=== PATIENT | female | born 1930 | race Caucasian/White ===

== ENCOUNTER 2016-05-12 12:22 | Emergency (ER) | payer OTHER ==
--- NOTE | 2016-05-12 12:32 | CPEKG ---
Heart Rate: 73 RR Interval: 822 P-R Interval: 184 QRSD Interval: 90 QT Interval: 404 QTC Interval: 446 P [place]: 38 QRS [place]: -56 T Wave [place]: 17 EKG Severity - ABNORMAL ECG - EKG Impression: SINUS RHYTHM EKG Impression: LAD, CONSIDER LEFT ANTERIOR FASCICULAR BLOCK EKG Impression: CONSIDER ANTERIOR INFARCT Electronically Signed By: Jong Martinez 12-May-2016 13:55:48
--- NOTE | 2016-05-12 12:34 | EDPHY ---
H & P HPI/ROS: Chief complaint. Dizziness HPI. 86-year-old female presents emergency department with dizziness. It actually has now resolved. She has a history of vertigo and this is similar though may be a little bit more intense. This morning she was feeling well but she bent over to pick remover a walking stick that she had dropped. When she stood up she got dizzy and somewhat off balance. Did not feel like she was going to pass out. She had no chest discomfort, shortness of breath, abdominal pain. Her symptoms have resolved at this point. Again she has had similar symptoms previously and has diagnosis of vertigo. ROS Constitutional. no fever/chills, no weakness Eyes. no problems with vision ENT. no sore throat, no nasal drainage Cardiovascular. no chest pain Respiratory. no shortness of breath, no cough Abdominal. no abdominal pain, no nausea/vomiting, no diarrhea . no problems urinating MS. no calf pain/swelling, no neck/back pain, no joint pain Skin. no rash Lymph. no swollen glands Neuro. Dizziness upon standing Past Medical/Surgical History: Past medical history is significant for vertigo, arthritis, restless leg syndrome Social History: nonsmoker, no alcohol Smoking Status: Former smoker Physical Exam: General Appearance: Alert well-developed female no distress vital signs are stable Eyes: Pupils equal and round no pallor or injection. No nystagmus ENT, Mouth: Mucous membranes are moist. Respiratory: There are no retractions, lungs are clear to auscultation. Cardiovascular: Regular rate and rhythm. Gastrointestinal: Abdomen is soft and nontender, no masses, bowel sounds normal. Neurological: Awake and alert, sensory and motor exams grossly normal. Skin: Warm and dry, no rashes. Musculoskeletal: Neck is supple nontender. Extremities symmetrical, full range of motion. Psychiatric: Patient is oriented X 3, there is no agitation. Constitutional: Initial Vital Signs Temperature (C) 36.6 C 05/12/16 12:28 Heart Rate 75 05/12/16 12:28 Respiratory Rate 14 05/12/16 12:28 Blood Pressure 131/78 H 05/12/16 12:28 O2 Sat (%) 96 05/12/16 12:28 O2 Delivery Mode Room Air Allergies/Adverse Reactions: Sulfa (Sulfonamide Antibiotics) Allergy (Verified 11/30/15 17:17) Home Medications: Medication Instructions Recorded Amitriptyline HCl [Elavil 50 mg 50 mg PO HS 10/29/15 (*)] Calcium Carbonate [Oyster Shell 500 mg PO DAILY 10/29/15 Calcium 500 mg (*)] Ergocalciferol [Vitamin D2 (*)] 50,000 unit PO [place] 10/29/15 Fluticasone Nasal [Flonase Nasal 1 sprays NASAL HS 10/29/15 [place]] Furosemide [Lasix 20 MG (*)] 20 mg PO DAILY 10/29/15 Ibuprofen [Motrin (*)] 400 mg PO TID PRN 10/29/15 Meclizine HCl [Meclizine HCl 12.5 12.5 mg PO BID PRN 10/29/15 mg (*)] Propylene Glycol/Peg 400 [SYSTANE 1 drop EACHEYE HS 10/29/15 0.3-0.4% EYE DROPS] Acetaminophen/Codeine 300/30Mg 1 each PO Q6 PRN #30 tab 12/05/15 [Tylenol #3 (*)] Aspirin EC [Aspirin EC 81 mg (*)] 81 mg PO DAILY #30 tab 12/05/15 cefTRIAXone [Rocephin] 2 gm IV DAILY #12 vial 12/05/15 guaiFENesin [Mucinex 600 MG (*)] 1,200 mg PO BID #10 tab.er 12/05/15 Meclizine HCl [Antivert] 25 mg PO Q6-8PRN PRN #10 tablet 05/12/16 Medical Decision Making - Diagnostics EKG Interpretation: EKG interpreted by me shows normal sinus rhythm with normal interval. There is left axis deviation and probable left anterior fascicular block. QRS is otherwise normal . Patient has inverted T-waves in leads V1 and V2. However these have been present in the last several EKGs and are not new findings. No arrhythmia. The rate is 73 Procedures: IV normal saline, monitor. Meclizine by mouth ED Course/Re-evaluation: Re-evaluation at 2:10 p.m.. Patient is without symptoms. She feels well. She feels well enough to go home. She and I discussed laboratory evaluation, criteria for return importance of follow-up further evaluation. She expresses understanding and agreement Differential Diagnosis: Patient has a history of vertigo and had dizziness upon standing up today after bending over to pick remover a walking stick. She was feeling well before and after 15 or 20 minutes her symptoms resolved. Workup shows an abnormal EKG which she has had previously. Her troponin is negative. She never had chest pain shortness of breath or abdominal pain. Do not think this represents acute coronary syndrome or PE. I do not think that the patient is having a stroke. She is alert conversational and has no nystagmus or evidence of central nervous system pathology. - Data Points Laboratory Results: Laboratory Results 05/12/16 12:50 05/12/16 12:50 05/12/16 05/12/16 12:50 12:50 WBC 9.95 10^3/uL H 10^3/uL (3.80-9.50) RBC 5.39 10^6/uL H 10^6/uL (4.18-5.33) Hgb 15.5 g/dL g/dL (12.6-16.3) Hct 47.7 % H % (38.0-47.0) MCV 88.5 fL fL (81.5-99.8) MCH 28.8 pg pg (27.9-34.1) MCHC 32.5 g/dL g/dL (32.4-36.7) RDW 14.2 % % (11.5-15.2) Plt Count 258 10^3/uL 10^3/uL (150-400) MPV 10.0 fL fL (8.7-11.7) Neut % (Auto) 71.6 % % (39.3-74.2) Lymph % (Auto) 19.2 % % (15.0-45.0) [place] % (Auto) 6.1 % % (4.5-13.0) Eos % (Auto) 2.4 % % (0.6-7.6) Baso % (Auto) 0.5 % % (0.3-1.7) Nucleat RBC Rel Count 0.0 % % (0.0-0.2) Absolute Neuts (auto) 7.12 10^3/uL H 10^3/uL (1.70-6.50) Absolute Lymphs (auto) 1.91 10^3/uL 10^3/uL (1.00-3.00) Absolute Monos (auto) 0.61 10^3/uL 10^3/uL (0.30-0.80) Absolute Eos (auto) 0.24 10^3/uL 10^3/uL (0.03-0.40) Absolute Basos (auto) 0.05 10^3/uL 10^3/uL (0.02-0.10) Absolute Nucleated RBC 0.00 10^3/uL 10^3/uL (0-0.01) Immature Gran % 0.2 % % (0.0-1.1) Immature Gran # 0.02 10^3/uL 10^3/uL (0.00-0.10) Sodium 142 mEq/L mEq/L (134-144) Potassium 4.8 mEq/L mEq/L (3.5-5.2) Chloride 106 mEq/L mEq/L (97-110) Carbon Dioxide 22 mEq/l mEq/l (22-31) Anion Gap 14 mEq/L mEq/L (8-16) BUN 24 mg/dL H mg/dL (7-23) Creatinine 1.2 mg/dL H mg/dL (0.6-1.0) Estimated GFR 43 Glucose 88 mg/dL mg/dL (70-100) Calcium 9.9 mg/dL mg/dL (8.5-10.4) Troponin I < 0.012 ng/mL ng/mL (0-0.034) Medications Given: Discontinued Medications Sodium Chloride (Ns) 500 mls @ 0 mls/hr IV ONCE ONE PRN Reason: As Directed Stop: 05/12/16 12:37 Last Admin: 05/12/16 12:57 Dose: 500 mls Sodium Chloride (Ns) 500 mls @ 0 mls/hr IV ONCE ONE PRN Reason: As Directed Stop: 05/12/16 13:50 Last Admin: 05/12/16 13:54 Dose: 500 mls Meclizine HCl (Meclizine Hcl) 25 mg PO EDNOW ONE Stop: 05/12/16 12:38 Last Admin: 05/12/16 12:57 Dose: 25 mg Departure - Departure Disposition: Home, Routine, Self-Care Clinical Impression: Vertigo Condition: Good Instructions: Vertigo (ED) Additional Instructions: Drink plenty of fluids and stay hydrated. Meclizine as needed for dizziness. Return for chest discomfort, trouble breathing or abdominal pain or worsening symptoms. Re-evaluation in 1-2 days for continuing symptoms Referrals: Patient,NotPresent [Unknown] - As per Instructions Sal Morales MD [Primary Care Provider] - 1 day, if not improved Prescriptions: Meclizine HCl [Antivert] 25 mg PO Q6-8PRN PRN #10 tablet PRN Reason: Dizziness
[2016-05-12 12:36] VITALS: TEMP 97.9
[2016-05-12] MEDS ORDERED: NS 500 ML IV ONE ×2 (12:36→13:49)
[2016-05-12] MEDS ORDERED: MECLIZINE HCL 25 MG TAB PO ONE (12:37)
[2016-05-12 13:01] LABS: % IMMATURE GRANULYOCYTES 0.2 % (0.0-1.1); ABSOLUTE IMMATURE GRANULOCYTES 0.02 10^3/uL (0.00-0.10); ADD DIFF? NO; ADD MORPH? NO; ADD SCAN? NO; ATYPICAL LYMPHOCYTE FLAG 10 (0-99); FRAGMENT RBC FLAG 0 (0-99); HEMATOCRIT 47.7 % (38.0-47.0); HEMOGLOBIN 15.5 g/dL (12.6-16.3); LEFT SHIFT FLG 0 (0-99); LIPEMIA HEMOLYSIS FLAG 80 (0-99); MEAN CELL HEMOGLOBIN 28.8 pg (27.9-34.1); MEAN CELL HEMOGLOBIN CONCENTR. 32.5 g/dL (32.4-36.7); MEAN CELL VOLUME 88.5 fL (81.5-99.8); PLATELET CLUMPS FLAG 10 (0-99); PLATELET COUNT 258 10^3/uL (150-400); RED BLOOD CELL COUNT 5.39 10^6/uL (4.18-5.33); RED CELL DISTRIBUTION WIDTH 14.2 % (11.5-15.2)
[2016-05-12 13:18] LABS: ANION GAP 14 mEq/L (8-16); CALCIUM 9.9 mg/dL (8.5-10.4); CARBON DIOXIDE 22 mEq/l (22-31); CHLORIDE 106 mEq/L (97-110); CREATININE 1.2 mg/dL (0.6-1.0); GLOMERULAR FILTRATION RATE 43; GLUCOSE 88 mg/dL (70-100); POTASSIUM 4.8 mEq/L (3.5-5.2); SODIUM 142 mEq/L (134-144)
[2016-05-12 13:30] LABS: TROPONIN I < 0.012 ng/mL (0-0.034)
[2016-05-12 13:33] VITALS: RESP 16
[2016-05-12 14:45] VITALS: BP 110/67; PULSE 71; O2SAT 93
== END 2016-05-12 15:00 | disposition home or self-care (01) ==
LOC: EDUNIT#
DX: R42 Dizziness and giddiness (principal); Z79.82 Long term (current) use of aspirin; Z87.891 Personal history of nicotine dependence

== ENCOUNTER → 2016-07-29 | Outpatient (CLI) | payer OTHER | LOC: FIMAGING 13:26 | PROVIDERS: ATTEND Internal Medicine Endocrinology, Diabetes & Metabolism | DX: M81.0 Age-related osteoporosis without current pathological fracture (principal); E21.0 Primary hyperparathyroidism ==

== ENCOUNTER 2017-01-14 15:33 | Emergency (ER) | payer OTHER ==
[2017-01-14 15:43] VITALS: TEMP 98.8
--- NOTE | 2017-01-14 15:50 | CPEKG ---
Heart Rate: 72 RR Interval: 833 P-R Interval: 200 QRSD Interval: 84 QT Interval: 428 QTC Interval: 469 P [place]: 68 QRS [place]: -85 T Wave [place]: 46 EKG Severity - ABNORMAL ECG - EKG Impression: SINUS RHYTHM EKG Impression: LAD, CONSIDER LEFT ANTERIOR FASCICULAR BLOCK EKG Impression: CONSIDER ANTERIOR INFARCT EKG Impression: BORDERLINE T ABNORMALITIES, ANTERIOR LEADS Electronically Signed By: Skylar Alvarado 14-Jan-2017 19:20:42
--- NOTE | 2017-01-14 15:58 | EDPHY ---
H & P HPI/ROS: CHIEF COMPLAINT: Palpitations, dizziness HISTORY OF PRESENT ILLNESS: 86-year-old female presents with palpitations and dizziness. Over the past 4-5 months she has had intermittent episodes of palpitations and rapid heart rate, associated with dizziness. The episodes last approximately 5 min and then spontaneously resolved. Today she went to her physician's office and her heart rate was in the 140s. No associated symptoms. No known alleviating or aggravating factors. She was sent to the emergency department for further evaluation. The dizziness and palpitations have now completely resolved. REVIEW OF SYSTEMS: Constitutional: No fever, no chills Eyes: No visual changes ENT: No sore throat Respiratory: No cough, no shortness of breath Cardiac: No chest pain Gastrointestinal: no vomiting, no abdominal pain Genitourinary: no dysuria Musculoskeletal: No leg pain or swelling Skin: No rash Neurological: No headache, no weakness Psychiatric: No depression Past Medical/Surgical History: Arthritis Vertigo Social History: Smoking Status: Former smoker Physical Exam: General Appearance: Alert, pleasant Eyes: Pupils equal and round, no conjunctival pallor ENT, Mouth: Mucous membranes moist Neck: Normal inspection Respiratory: Lungs are clear to auscultation Cardiovascular: Regular rate and rhythm, no murmur Gastrointestinal: Abdomen is soft and nontender Neurological: A&O, nonfocal exam Skin: Warm and dry, no rash Extremities: Nontender, no pedal edema Psychiatric: Mood and affect normal Constitutional: Initial Vital Signs Temperature (C) 37.1 C 01/14/17 15:38 Heart Rate 85 01/14/17 15:38 Respiratory Rate 18 01/14/17 15:38 Blood Pressure 120/98 H 01/14/17 15:38 O2 Sat (%) 93 01/14/17 15:38 O2 Delivery Mode Room Air Allergies/Adverse Reactions: amoxicillin Allergy (Verified 01/14/17 15:44) promethazine Allergy (Verified 01/14/17 15:44) Sulfa (Sulfonamide Antibiotics) Allergy (Verified 11/30/15 17:17) Home Medications: Medication Instructions Recorded Amitriptyline HCl [Elavil 50 mg 50 mg PO HS 10/29/15 (*)] Calcium Carbonate [Oyster Shell 500 mg PO DAILY 10/29/15 Calcium 500 mg (*)] Ergocalciferol [Vitamin D2 (*)] 50,000 unit PO [place] 10/29/15 Fluticasone Nasal [Flonase Nasal 1 sprays NASAL HS 10/29/15 [place]] Furosemide [Lasix 20 MG (*)] 20 mg PO DAILY 10/29/15 Ibuprofen [Motrin (*)] 400 mg PO TID PRN 10/29/15 Meclizine HCl [Meclizine HCl 12.5 12.5 mg PO BID PRN 10/29/15 mg (*)] Propylene Glycol/Peg 400 [SYSTANE 1 drop EACHEYE HS 10/29/15 0.3-0.4% EYE DROPS] Acetaminophen/Codeine 300/30Mg 1 each PO Q6 PRN #30 tab 12/05/15 [Tylenol #3 (*)] Aspirin EC [Aspirin EC 81 mg (*)] 81 mg PO DAILY #30 tab 12/05/15 Meclizine HCl [Antivert] 25 mg PO Q6-8PRN PRN #10 tablet 05/12/16 Medical Decision Making ED Course/Re-evaluation: Rhythm strip from [facility] reviewed. Narrow complex tachycardia, rate 140s, consistent with atrial flutter. The patient is now in normal sinus rhythm, with a blood pressure of 153/93. She is asymptomatic. Cardiology consulted. Angela Cerda saw the patient in the emergency department. Prescription for diltiazem and Eliquis written. She will follow up in the office at [facility]. She remained in normal sinus rhythm throughout and was asymptomatic. Differential Diagnosis: Differential diagnosis includes though it is not limited to ventricular tachycardia, SVT, pulmonary embolism, hypotension, acute coronary syndrome. - Data Points Laboratory Results: Laboratory Results 01/14/17 16:15 01/14/17 16:15 01/14/17 01/14/17 16:15 16:15 WBC 6.80 10^3/uL 10^3/uL (3.80-9.50) RBC 4.87 10^6/uL 10^6/uL (4.18-5.33) Hgb 14.2 g/dL g/dL (12.6-16.3) Hct 42.2 % % (38.0-47.0) MCV 86.7 fL fL (81.5-99.8) MCH 29.2 pg pg (27.9-34.1) MCHC 33.6 g/dL g/dL (32.4-36.7) RDW 13.8 % % (11.5-15.2) Plt Count 226 10^3/uL 10^3/uL (150-400) MPV 9.9 fL fL (8.7-11.7) Neut % (Auto) 54.8 % % (39.3-74.2) Lymph % (Auto) 30.9 % % (15.0-45.0) [place] % (Auto) 10.0 % % (4.5-13.0) Eos % (Auto) 3.1 % % (0.6-7.6) Baso % (Auto) 0.9 % % (0.3-1.7) Nucleat RBC Rel Count 0.0 % % (0.0-0.2) Absolute Neuts (auto) 3.73 10^3/uL 10^3/uL (1.70-6.50) Absolute Lymphs (auto) 2.10 10^3/uL 10^3/uL (1.00-3.00) Absolute Monos (auto) 0.68 10^3/uL 10^3/uL (0.30-0.80) Absolute Eos (auto) 0.21 10^3/uL 10^3/uL (0.03-0.40) Absolute Basos (auto) 0.06 10^3/uL 10^3/uL (0.02-0.10) Absolute Nucleated RBC 0.00 10^3/uL 10^3/uL (0-0.01) Immature Gran % 0.3 % % (0.0-1.1) Immature Gran # 0.02 10^3/uL 10^3/uL (0.00-0.10) Sodium 144 mEq/L mEq/L (134-144) Potassium 4.4 mEq/L mEq/L (3.5-5.2) Chloride 108 mEq/L mEq/L (97-110) Carbon Dioxide 22 mEq/l mEq/l (22-31) Anion Gap 14 mEq/L mEq/L (8-16) BUN 25 mg/dL H mg/dL (7-23) Creatinine 1.1 mg/dL H mg/dL (0.6-1.0) Estimated GFR 47 Glucose 76 mg/dL mg/dL (70-100) Calcium 9.3 mg/dL mg/dL (8.5-10.4) Troponin I < 0.012 ng/mL ng/mL (0.000-0.034) Departure - Departure Disposition: Home, Routine, Self-Care Clinical Impression: Atrial flutter, paroxysmal Condition: Good Instructions: Atrial Flutter (ED) Additional Instructions: Take the diltiazem and Eliquis as prescribed. Follow-up at [facility]. Referrals: Angela Cerda PA [Physician [facility]] - As per Instructions ([facility] will call you with an appointment time.)
[2017-01-14 16:32] LABS: ANION GAP 14 mEq/L (8-16); CALCIUM 9.3 mg/dL (8.5-10.4); CARBON DIOXIDE 22 mEq/l (22-31); CHLORIDE 108 mEq/L (97-110); CREATININE 1.1 mg/dL (0.6-1.0); GLOMERULAR FILTRATION RATE 47; GLUCOSE 76 mg/dL (70-100); POTASSIUM 4.4 mEq/L (3.5-5.2); SODIUM 144 mEq/L (134-144)
[2017-01-14 16:33] LABS: % IMMATURE GRANULYOCYTES 0.3 % (0.0-1.1); ABSOLUTE IMMATURE GRANULOCYTES 0.02 10^3/uL (0.00-0.10); ADD DIFF? NO; ADD MORPH? NO; ADD SCAN? YES; ATYPICAL LYMPHOCYTE FLAG 40 (0-99); FRAGMENT RBC FLAG 0 (0-99); HEMATOCRIT 42.2 % (38.0-47.0); HEMOGLOBIN 14.2 g/dL (12.6-16.3); LEFT SHIFT FLG 0 (0-99); LIPEMIA HEMOLYSIS FLAG 80 (0-99); MEAN CELL HEMOGLOBIN 29.2 pg (27.9-34.1); MEAN CELL HEMOGLOBIN CONCENTR. 33.6 g/dL (32.4-36.7); MEAN CELL VOLUME 86.7 fL (81.5-99.8); MEAN PLATELET VOLUME 9.9 fL (8.7-11.7); PLATELET COUNT 226 10^3/uL (150-400); RED BLOOD CELL COUNT 4.87 10^6/uL (4.18-5.33); RED CELL DISTRIBUTION WIDTH 13.8 % (11.5-15.2)
[2017-01-14 16:41] LABS: PLATELET CLUMPS FLAG 110 (0-99)
[2017-01-14 16:44] LABS: TROPONIN I < 0.012 ng/mL (0.000-0.034)
[2017-01-14 17:09] LABS: SCAN NEGATIVE
[2017-01-14 17:20] VITALS: BP 158/94; PULSE 74; RESP 16; O2SAT 95
--- NOTE | 2017-01-14 20:07 | GCON ---
[f rep st] CONSULTATION DATE OF CONSULTATION: 01/14/2017 CHIEF COMPLAINT: Dizziness, palpitations. HISTORY OF PRESENT ILLNESS: The patient is an 86-year-old female, who presented to her PCP's office today and developed dizziness and palpitations while in the office. An EKG was obtained, and she was found to be in atrial flutter at a rate of 150 beats per minute. She was referred to the emergency room, but prior to admission, she converted to normal sinus rhythm. She has had similar symptoms for years. Denies any true syncope associated with these events. She does become dizzy with a pounding in her chest. She has also had associated shortness of breath and chest discomfort. PAST MEDICAL HISTORY: Parathyroidectomy, uterine cancer status post chemotherapy. She has had a cholecystectomy and a partial gastrectomy of 2/3 of her stomach. FAMILY HISTORY: Her father had a CVA at an unknown age. SOCIAL HISTORY: She denies any recent history of tobacco use. She is currently accompanied by her daughter and . MEDICATIONS: Lasix 20 mg daily, aspirin 81 mg daily, meclizine p.r.n., ibuprofen p.r.n., ketoconazole cream as needed, amitriptyline 50 mg at bedtime, Flonase p.r.n., vitamin C, calcium, vitamin D. ALLERGIES: Sulfa, Phenergan, amoxicillin. PHYSICAL EXAMINATION: GENERAL: Patient appears in no acute distress. VITAL SIGNS: Blood pressure 120/98, heart rate 85, oxygen saturation 93% on room air. Afebrile. NECK: No carotid bruits or JVD present. LUNGS: Clear to auscultation. No wheezes, rhonchi, or crackles auscultated. CARDIAC: Regular rate and rhythm without any significant murmurs rubs or gallops appreciated. ABDOMEN: Soft, nontender, nondistended. EXTREMITIES: Palpable pulses bilaterally without any evidence of edema. NEUROLOGIC: Nonfocal. PSYCHIATRIC: Mood and affect appropriate. SKIN: No obvious rashes or ecchymosis identified. LABORATORY DATA: Potassium 4.4, sodium 144, BUN 25, creatinine 1.1. GFR 47. Troponin negative x1. DIAGNOSTIC STUDIES: EKG shows atrial flutter at a rate of 150 beats per minute. Repeat EKG shows normal sinus rhythm with anterior Q-waves. This is unchanged when compared to prior EKGs. ASSESSMENT: The patient is an 86-year-old female, who presents with dizziness and palpitations and found to be in atrial flutter with rapid ventricular response. PLAN: The patient presents today with new onset atrial fibrillation. She has had palpitations with associated dizziness for years and has been unable to identify the cause. She was symptomatic at the time of her atrial flutter and, therefore, I feel her dizziness is related to atrial flutter with rapid ventricular response. She has converted to normal sinus rhythm and denies any further palpitations, dizziness, or chest pain. Her initial troponin is negative. We discussed treatment options of atrial flutter. I think at this point, rate control and anticoagulation would be ideal. She will begin diltiazem extended release 120 mg daily for rate control. She will also begin Eliquis 5 mg b.i.d. for anticoagulation. Her CHADS2-VASc score is currently 3. She understands the risks versus benefit of anticoagulation and would like to begin Eliquis. I will plan for her to follow up in our office in 3-4 weeks with an echocardiogram and 48 hour holter monitor. She may also benefit from a nuclear stress test, given her abnormal EKG. /[id number]/MODL MTDD
== END 2017-01-14 17:19 | disposition home or self-care (01) ==
LOC: EDUNIT#
DX: I48.92 Unspecified atrial flutter (principal); Z87.891 Personal history of nicotine dependence

== ENCOUNTER 2017-08-08 21:24 | Emergency (ER) | payer OTHER ==
--- NOTE | 2017-08-08 21:46 | CPEKG ---
Heart Rate: 70 RR Interval: 857 P-R Interval: 220 QRSD Interval: 82 QT Interval: 424 QTC Interval: 458 P [place]: -5 QRS [place]: 114 T Wave [place]: 18 EKG Severity - ABNORMAL ECG - EKG Impression: SINUS RHYTHM EKG Impression: FIRST DEGREE AV BLOCK EKG Impression: LEFT POSTERIOR FASCICULAR BLOCK EKG Impression: BORDERLINE R WAVE PROGRESSION, ANTERIOR LEADS Electronically Signed By: Cristian Murphy 09-Aug-2017 06:53:35
--- NOTE | 2017-08-08 22:14 | EDPHY ---
H & P Stated Complaint: dizzy bp low hr elevated Time Seen by Provider: 08/08/17 22:14 HPI/ROS: HPI CHIEF COMPLAINT: Tachycardia and hypotensive HISTORY OF PRESENT ILLNESS: Patient is a 87-year-old female, she has a history of atrial flutter, she is on Eliquis. She recently had a medication change she states she has to take metoprolol twice a day but now it is down to once today she believes she takes 12.5 mg in the morning. She states she noticed around 5: 00 p.m. That her heart rate was running very fast in the 130s to 140s. She took her blood pressure was getting readings in the 80s over 50s. She did feel lightheaded when this was happening. She denies any chest pain or shortness of breath. Denies pleuritic pain or fever. She did recently have right shoulder surgery with rotator cuff surgery. All of the symptoms started around 5:00 p.m.. Past Medical History: AFib, a flutter, on Eliquis, recent change in medication , restless leg syndrome, vertigo Past Surgical History: Recent right rotator cuff surgery. Social History: Denies daily use of drugs alcohol tobacco. Resides locally. Daughter at bedside. Family History: Noncontributory ROS REVIEW OF SYSTEMS: A comprehensive 10 point review of systems is otherwise negative aside from elements mentioned in the history of present illness. Exam Constitutional nontoxic appearing however slightly dry, frail, elderly triage nursing summary reviewed, vital signs reviewed, awake/alert. She is not tachycardic cardiac upon arrival but slightly hypotensive 90s over 60s. Eyes normal conjunctivae and sclera, EOMI, PERRLA. HENT normal inspection, atraumatic, moist mucus membranes, no epistaxis, neck supple/ no meningismus, no raccoon eyes. Respiratory clear to auscultation bilaterally, normal breath sounds, no respiratory distress, no wheezing. Cardiovascular rate normal, regular rhythm, no murmur, no edema, distal pulses normal. Gastrointestinal soft, non-tender, no rebound, no guarding, normal bowel sounds, no distension, no pulsatile mass. Genitourinary no CVA tenderness. Musculoskeletal no midline vertebral tenderness, full range of motion, no calf swelling, no tenderness of extremities, no meningismus, good pulses, neurovascularly intact. Skin pink, warm, & dry, no rash, skin atraumatic. Neurologic awake, alert and oriented x 3, AAOx3, moves all 4 extremities equally, motor intact, sensory intact, CN II-XII intact, normal cerebellar, normal vision, normal speech. Psychiatric normal mood/affect. Heme/Lymph/Immune no lymphadenopathy. Includes but is not limited to in a particular order AFib with RVR, atrial flutter, other cardiac arrhythmia, electrolyte disturbance, infection, UTI, dehydration, CHF, acute coronary syndrome Medical Decision Making: Plan for this patient full surveillance monitor, IV establishment with fluid bolus 1 L normal saline, chest x-ray, electrolytes, and re-evaluate. Re-evaluation: EKG interpretation by me on record in [facility] system. Impression time of EKG 2143, this is sinus rhythm rate of 70 there is a first-degree AV block present 220. Left posterior fascicular block present. Very similar to previous EKG dated 01/14/2017. T-wave inversions V1 V2. Similar to previous EKG. On this EKG no acute ST elevation or significant ST depression. 2239: Patient's blood work reviewed she does have a positive D-dimer in the setting of recent surgery positive D-dimer and tachycardia will proceed with CT angiogram of her chest rule out PE. CT angiogram of the chest for positive D-dimer in the setting of tachycardia recent surgery shows no evidence of pulmonary embolism. EKG interpretation by me on record in [facility] system. Impression this is a repeat EKG time of EKG 1:29 a.m., this is sinus rhythm rate of 63 first-degree AV block DE interval 228 T-wave inversions V1 V2. When I compare this current EKG to her old EKGs it is unchanged. 0143AM: Patient re-evaluated she is resting comfortably here. She has no complaints she denies any chest pain or shortness of breath. She has been on the surveillance monitor the entire time over 4 hr here in emergency room, there has been no sign of tachycardia or other cardiac arrhythmia captured. Additionally there has been really no hypertension. The patient's current vitals at this time heart rate 64, blood pressure 120/65 and pulse ox 96% on room air. She would like to go home. She has had serial EKGs and serial troponins that are unchanged. She does clinically appear slightly dry on exam encouraged to increase her fluid intake. Additionally I do recommend she follows up with her primary care doctor about tachycardia and for adjustment of her metoprolol as it was recently adjusted. Additionally she understands return emergency room she develops any worsening symptoms includes chest pain, shortness of breath, palpitations, tachycardia or low blood pressure. She understands. Daughter was at bedside and agreed with this plan. Source: Patient - Personal History Current Tetanus/Diphtheria Vaccine: Yes Current Tetanus Diphtheria and Acellular Pertussis (TDAP): Yes - Medical/Surgical History Hx Asthma: No Hx Chronic Respiratory Disease: No Hx Diabetes: No Hx Cardiac Disease: Yes Hx Renal Disease: No Hx Cirrhosis: No Hx Alcoholism: No Hx HIV/AIDS: No Hx Splenectomy or Spleen Trauma: No Other PMH: PMH- VERTIGO, ARTHRITIS, RESTLESS LEG SYNDROME. uterine ca hysterectomy - Social History Smoking Status: Former smoker Constitutional: Initial Vital Signs Temperature (C) 36.6 C 08/08/17 21:31 Heart Rate 75 08/08/17 21:31 Respiratory Rate 18 08/08/17 21:31 Blood Pressure 102/64 08/08/17 21:31 O2 Sat (%) 94 08/08/17 21:31 O2 Delivery Mode Room Air Allergies/Adverse Reactions: amoxicillin Allergy (Verified 01/14/17 15:44) promethazine Allergy (Verified 01/14/17 15:44) Sulfa (Sulfonamide Antibiotics) Allergy (Verified 11/30/15 17:17) Home Medications: Medication Instructions Recorded Amitriptyline HCl [Elavil 50 mg 50 mg PO HS 10/29/15 (*)] Calcium Carbonate [Oyster Shell 500 mg PO DAILY 10/29/15 Calcium 500 mg (*)] Ergocalciferol [Vitamin D2 (*)] 50,000 unit PO CASILLAS 10/29/15 Fluticasone Nasal [Flonase Nasal 1 sprays NASAL HS 10/29/15 [place]] Furosemide [Lasix 20 MG (*)] 20 mg PO 10/29/15 Meclizine HCl [Meclizine HCl 12.5 12.5 mg PO BID PRN 10/29/15 mg (*)] Propylene Glycol/Peg 400 [SYSTANE 1 drop EACHEYE HS 10/29/15 0.3-0.4% EYE DROPS] Acetaminophen/Codeine 300/30Mg 1 each PO Q6 PRN #30 tab 12/05/15 [Tylenol #3 (*)] Aspirin EC [Aspirin EC 81 mg (*)] 81 mg PO DAILY #30 tab 12/05/15 Meclizine HCl [Antivert] 25 mg PO Q6-8PRN PRN #10 tablet 05/12/16 Metoprolol Succinate 08/08/17 Medical Decision Making - Diagnostics Imaging Results: Imaging Impressions Chest X-Ray 08/08/17 22:23 Impression: Stable mild cardiomegaly. No evidence for acute cardiopulmonary abnormality. Chronic findings, as above. Chest/Thorax CTA 08/08/17 22:39 Impression: 1. No evidence of thrombopulmonary embolic disease. 2. Other chronic findings as above. Results called and discussed with Surinder Fairbanks MD at 08/08/2017 23:21. - Data Points Laboratory Results: Laboratory Results 08/08/17 22:10 08/08/17 22:10 08/08/17 08/08/17 08/08/17 23:28 23:18 22:10 WBC RBC Hgb Hct MCV MCH MCHC RDW Plt Count MPV Neut % (Auto) Lymph % (Auto) [place] % (Auto) Eos % (Auto) Baso % (Auto) Nucleat RBC Rel Count Absolute Neuts (auto) Absolute Lymphs (auto) Absolute Monos (auto) Absolute Eos (auto) Absolute Basos (auto) Absolute Nucleated RBC Immature Gran % Immature Gran # PT INR APTT D-Dimer Sodium 138 mEq/L mEq/L (135-145) Potassium 4.5 mEq/L mEq/L (3.3-5.0) Chloride 105 mEq/L mEq/L (97-110) Carbon Dioxide 18 mEq/l L mEq/l (22-31) Anion Gap 15 mEq/L mEq/L (8-16) BUN 26 mg/dL H mg/dL (7-23) Creatinine 1.1 mg/dL H mg/dL (0.6-1.0) Estimated GFR 47 Glucose 100 mg/dL mg/dL (70-100) Calcium 9.5 mg/dL mg/dL (8.5-10.4) Magnesium 2.3 mg/dL mg/dL (1.6-2.3) Total Bilirubin 0.4 mg/dL mg/dL (0.1-1.4) Conjugated Bilirubin 0.4 mg/dL mg/dL (0.0-0.5) Unconjugated Bilirubin 0.0 mg/dL mg/dL (0.0-1.1) AST 25 IU/L IU/L (14-46) ALT 30 IU/L IU/L (9-52) Alkaline Phosphatase 97 IU/L IU/L (38-126) Creatine Kinase 55 IU/L IU/L (0-156) CK-MB (CK-2) Fraction 2.08 ng/mL ng/mL (0.00-4.55) POC Troponin I 0.01 ng/mL ng/mL (0.00-0.08) NT-Pro-B Natriuret Pep 931 pg/mL H pg/mL (0-450) Total Protein 7.0 g/dL g/dL (6.3-8.2) Albumin 3.9 g/dL g/dL (3.5-5.0) Lipase 34 IU/L IU/L (23-300) Urine Color YELLOW Urine Appearance HAZY Urine pH 5.0 (5.0-7.5) Ur Specific [place] 1.014 (1.002-1.030) Urine Protein NEGATIVE (NEGATIVE) Urine Ketones NEGATIVE (NEGATIVE) Urine Blood NEGATIVE (NEGATIVE) Urine Nitrate NEGATIVE (NEGATIVE) Urine Bilirubin NEGATIVE (NEGATIVE) Urine Urobilinogen NEGATIVE EU EU (0.2-1.0) Ur Leukocyte Esterase NEGATIVE (NEGATIVE) Urine Glucose NEGATIVE (NEGATIVE) 08/08/17 08/08/17 22:10 22:10 WBC 8.60 10^3/uL 10^3/uL (3.80-9.50) RBC 4.22 10^6/uL 10^6/uL (4.18-5.33) Hgb 12.3 g/dL L g/dL (12.6-16.3) Hct 38.6 % % (38.0-47.0) MCV 91.5 fL fL (81.5-99.8) MCH 29.1 pg pg (27.9-34.1) MCHC 31.9 g/dL L g/dL (32.4-36.7) RDW 14.0 % % (11.5-15.2) Plt Count 424 10^3/uL H 10^3/uL (150-400) MPV 9.3 fL fL (8.7-11.7) Neut % (Auto) 58.0 % % (39.3-74.2) Lymph % (Auto) 28.0 % % (15.0-45.0) [place] % (Auto) 9.2 % % (4.5-13.0) Eos % (Auto) 3.7 % % (0.6-7.6) Baso % (Auto) 0.8 % % (0.3-1.7) Nucleat RBC Rel Count 0.0 % % (0.0-0.2) Absolute Neuts (auto) 4.98 10^3/uL 10^3/uL (1.70-6.50) Absolute Lymphs (auto) 2.41 10^3/uL 10^3/uL (1.00-3.00) Absolute Monos (auto) 0.79 10^3/uL 10^3/uL (0.30-0.80) Absolute Eos (auto) 0.32 10^3/uL 10^3/uL (0.03-0.40) Absolute Basos (auto) 0.07 10^3/uL 10^3/uL (0.02-0.10) Absolute Nucleated RBC 0.00 10^3/uL 10^3/uL (0-0.01) Immature Gran % 0.3 % % (0.0-1.1) Immature Gran # 0.03 10^3/uL 10^3/uL (0.00-0.10) PT 14.5 SEC SEC (12.0-15.0) INR 1.11 (0.83-1.16) APTT 32.1 SEC SEC (23.0-38.0) D-Dimer 0.63 ug/mLFEU H ug/mLFEU (0.00-0.50) Sodium Potassium Chloride Carbon Dioxide Anion Gap BUN Creatinine Estimated GFR Glucose Calcium Magnesium Total Bilirubin Conjugated Bilirubin Unconjugated Bilirubin AST ALT Alkaline Phosphatase Creatine Kinase CK-MB (CK-2) Fraction POC Troponin I NT-Pro-B Natriuret Pep Total Protein Albumin Lipase Urine Color Urine Appearance Urine pH Ur Specific [place] Urine Protein Urine Ketones Urine Blood Urine Nitrate Urine Bilirubin Urine Urobilinogen Ur Leukocyte Esterase Urine Glucose Medications Given: Discontinued Medications Sodium Chloride (Ns) 1,000 mls @ 0 mls/hr IV EDNOW ONE; Wide Open PRN Reason: Protocol Stop: 08/08/17 22:23 Last Admin: 08/08/17 22:25 Dose: 1,000 mls Point of Care Test Results: Chemistry 08/08/17 23:18 POC Troponin I 0.01 ng/mL ng/mL (0.00-0.08) Departure - Departure Disposition: Home, Routine, Self-Care Clinical Impression: Lightheaded, Palpitations Condition: Good Instructions: Near Syncope (ED), Lightheadedness (ED), Heart Palpitations (ED) Additional Instructions: 1. Follow up with her primary care doctor. 2. Return to the emergency room if you have any worsening symptoms questions or concerns includes low blood pressure, fast heart rate. Referrals: Sal Morales MD [Primary Care Provider] - As per Instructions
[2017-08-08] MEDS ORDERED: NS 1,000 ML IV ONE (22:22)
[2017-08-08 22:29] LABS: PLATELET COUNT 424 10^3/uL (150-400)
[2017-08-08 22:34] LABS: CREATINE KINASE 55 IU/L (0-156); INR 1.11 (0.83-1.16); PROTIME(PATIENT) 14.5 SEC (12.0-15.0)
[2017-08-08] MEDS ORDERED: IOPAMIDOL (ISOVUE 370) 100 ML BTL IV ONE (22:50)
--- NOTE | 2017-08-09 01:31 | CPEKG ---
Heart Rate: 63 RR Interval: 952 P-R Interval: 228 QRSD Interval: 84 QT Interval: 460 QTC Interval: 471 P [place]: 76 QRS [place]: -42 T Wave [place]: 42 EKG Severity - ABNORMAL ECG - EKG Impression: SINUS RHYTHM EKG Impression: FIRST DEGREE AV BLOCK EKG Impression: LEFT AXIS DEVIATION EKG Impression: BORDERLINE R WAVE PROGRESSION, ANTERIOR LEADS Electronically Signed By: Cristian Murphy 09-Aug-2017 06:53:12
[2017-08-09 02:21] VITALS: BP 135/76
== END 2017-08-09 02:19 | disposition home or self-care (01) ==
DX: R00.2 Palpitations (principal); R42 Dizziness and giddiness; Z79.01 Long term (current) use of anticoagulants; Z79.82 Long term (current) use of aspirin; Z87.891 Personal history of nicotine dependence
CPT/HCPCS: 84484-PO; Q9967

== ENCOUNTER 2017-08-15 21:26 | Emergency (ER) | payer OTHER ==
[2017-08-15] MEDS ORDERED: NS 500 ML IV ONE (21:33)
--- NOTE | 2017-08-15 21:41 | EDPHY ---
HPI/HX/ROS/PE/MDM Narrative: CHIEF COMPLAINT: Tired, rapid heart rate HPI: The patient is an anticoagulated 87 y/o female with a history of atrial fibrillation arriving with her daughter complaining of acute onset fatigue and rapid heart rate this evening, sometime in the last 3 hours. She was evaluated in the ED here one week ago with a similar complaint, but no tachycardia or other arrhythmia was captured on the monitor during her visit. A chest CTA at that visit was negative. She has not yet been able to follow up with a high school foreign language teacher. Tonight, the patient began to feel excessively fatigued after dinner. Her daughter measured her pulse in the 140 range and brought her to the ED with concern for atrial fibrillation. The patient denies associated chest pain, dyspnea, fever, abdominal pain, nausea, vomiting, syncope, recent illness , recent trauma. She reports she is compliant with her medications. Notably, during an admission for sepsis in 2016 the patient presented in junctional tachycardia that improved after a fluid bolus. REVIEW OF SYSTEMS: Aside from elements discussed in the HPI, a comprehensive 10-point review of systems was reviewed and is negative. PMH: Atrial fibrillation - Eliquis, atrial flutter, restless leg syndrome, vertigo, right rotator cuff surgery Prior medical records reviewed including ED visit 08/08/17 for rapid atrial fibrillation and admission 11/30/15 for sepsis. SOCIAL HISTORY: Daughter at bedside. PHYSICAL EXAM: General:Patient is alert, in no acute distress. HR 143. ENT:Eyes are normal to inspection. ENT inspection normal. Neck: Normal inspection. Full range of motion. Respiratory:No respiratory distress. Breath sounds normal bilaterally. Cardiovascular: Tachycardic irregular rate and rhythm. Strong peripheral pulses. Normal cap refill. Abdomen:The abdomen is nontender to palpation. There are no peritoneal signs. Back: Normal to inspection. No tenderness to palpation. Skin: Normal color. No rash. Warm and dry. Extremities: Normal appearance. Full range of motion. Neuro: Oriented x3. Normal motor function. Normal sensory function. (Luis Angel Morris) ED Course: This is an anticoagulated 87 y/o female with a history of atrial fibrillation who presents in a rapid heart rate complaining of fatigue. Symptoms began sometime in the last 3 hours. Exam is unremarkable apart from tachycardic irregular heart rate. Plan for IV, labs including troponin, EKG. 500mL IV NS ordered. 2146: Attempted vagal maneuver without sustained improvement in rhythm. 10mg IV Diltazem ordered. The 12 lead EKG was interpreted by myself. Junctional tachycardia. See hard copy and/or "tracemaster" electronic copy for interpretation. 2201: Patient has converted to sinus rhythm, rate 80, approximately 5 minutes after receiving Diltazem. Repeat EKG shows sinus rhythm. Troponin negative. (Luis Angel Morris) MDM: 2331: Patient is signed over to me at 10:30 p.m. Shift change. Patient pending a chemistry panel. The chemistry panel was normal the patient did not go back into SVT she can be discharged home. Had a lengthy discussion with the patient as well as the patient's daughter at bedside about going home versus being observed overnight in the hospital for SVT. The patient is declining hospital admission wants to go home. I did offer her observation and admission for cardiology to see however she is decline. She states she has an appointment on Tuesday with Dr. Jean-Baptiste. I did recommend that if she develops chest pain, shortness of breath, increasing heart rate again like tachycardia or not feeling well she needs return emergency room since she wants to go home. She is anticoagulated. In the er she has been in sinus rhythm in the emergency room. She denies any chest pain or shortness of breath. She did convert out of SVT with diltiazem to a sinus rhythm. Electrolytes are reviewed unremarkable. Return precautions discussed with daughter and patient at bedside they understand. Follow up with Cardiology on Tuesday Return if any worsening symptoms questions or concerns. (Surinder Fairbanks) - Data Points Laboratory Results: Laboratory Results 08/15/17 21:50 08/15/17 21:50 08/15/17 08/15/17 08/15/17 21:50 21:50 21:50 WBC 12.24 10^3/uL H 10^3/uL (3.80-9.50) RBC 4.52 10^6/uL 10^6/uL (4.18-5.33) Hgb 13.4 g/dL g/dL (12.6-16.3) Hct 41.1 % % (38.0-47.0) MCV 90.9 fL fL (81.5-99.8) MCH 29.6 pg pg (27.9-34.1) MCHC 32.6 g/dL g/dL (32.4-36.7) RDW 13.6 % % (11.5-15.2) Plt Count 347 10^3/uL 10^3/uL (150-400) MPV 9.6 fL fL (8.7-11.7) Neut % (Auto) 53.0 % % (39.3-74.2) Lymph % (Auto) 31.4 % % (15.0-45.0) [place] % (Auto) 9.3 % % (4.5-13.0) Eos % (Auto) 5.4 % % (0.6-7.6) Baso % (Auto) 0.7 % % (0.3-1.7) Nucleat RBC Rel Count 0.0 % % (0.0-0.2) Absolute Neuts (auto) 6.49 10^3/uL 10^3/uL (1.70-6.50) Absolute Lymphs (auto) 3.84 10^3/uL H 10^3/uL (1.00-3.00) Absolute Monos (auto) 1.14 10^3/uL H 10^3/uL (0.30-0.80) Absolute Eos (auto) 0.66 10^3/uL H 10^3/uL (0.03-0.40) Absolute Basos (auto) 0.08 10^3/uL 10^3/uL (0.02-0.10) Absolute Nucleated RBC 0.00 10^3/uL 10^3/uL (0-0.01) Immature Gran % 0.2 % % (0.0-1.1) Immature Gran # 0.03 10^3/uL 10^3/uL (0.00-0.10) Sodium 140 mEq/L mEq/L (135-145) Potassium 5.0 mEq/L mEq/L (3.3-5.0) Chloride 109 mEq/L mEq/L (97-110) Carbon Dioxide 18 mEq/l L mEq/l (22-31) Anion Gap 13 mEq/L mEq/L (8-16) BUN 20 mg/dL mg/dL (7-23) Creatinine 1.1 mg/dL H mg/dL (0.6-1.0) Estimated GFR 47 Glucose 146 mg/dL H mg/dL (70-100) Calcium 9.9 mg/dL mg/dL (8.5-10.4) POC Troponin I 0.01 ng/mL ng/mL (0.00-0.08) Medications Given: Discontinued Medications Diltiazem HCl (Cardizem 25 Mg/5 Ml Vial) 10 mg IVP EDNOW ONE Stop: 08/15/17 21:51 Last Admin: 08/15/17 21:53 Dose: 10 mg Sodium Chloride (Ns) 500 mls @ 0 mls/hr IV EDNOW ONE; Wide Open PRN Reason: Protocol Stop: 08/15/17 21:34 Last Admin: 08/15/17 21:45 Dose: 500 mls Point of Care Test Results: Chemistry 08/15/17 21:50 POC Troponin I 0.01 ng/mL ng/mL (0.00-0.08) General Initial Vital Signs: Initial Vital Signs O2 Sat (%) 95 08/15/17 21:30 O2 Delivery Mode Nasal Cannula O2 (L/minute) 2 Allergies/Adverse Reactions: amoxicillin Allergy (Verified 01/14/17 15:44) promethazine Allergy (Verified 01/14/17 15:44) Sulfa (Sulfonamide Antibiotics) Allergy (Verified 11/30/15 17:17) Home Medications: Medication Instructions Recorded Amitriptyline HCl [Elavil 50 mg 50 mg PO HS 10/29/15 (*)] Calcium Carbonate [Oyster Shell 500 mg PO DAILY 10/29/15 Calcium 500 mg (*)] Ergocalciferol [Vitamin D2 (*)] 50,000 unit PO [place] 10/29/15 Fluticasone Nasal [Flonase Nasal 1 sprays NASAL HS 10/29/15 [place]] Furosemide [Lasix 20 MG (*)] 20 mg PO 10/29/15 Meclizine HCl [Meclizine HCl 12.5 12.5 mg PO BID PRN 10/29/15 mg (*)] Propylene Glycol/Peg 400 [SYSTANE 1 drop EACHEYE HS 10/29/15 0.3-0.4% EYE DROPS] Acetaminophen/Codeine 300/30Mg 1 each PO Q6 PRN #30 tab 12/05/15 [Tylenol #3 (*)] Aspirin EC [Aspirin EC 81 mg (*)] 81 mg PO DAILY #30 tab 12/05/15 Meclizine HCl [Antivert] 25 mg PO Q6-8PRN PRN #10 tablet 05/12/16 Metoprolol Succinate 08/08/17 Eliquis 08/15/17 Departure - Departure Disposition: Home, Routine, Self-Care Clinical Impression: Junctional tachycardia Condition: Good Instructions: Supraventricular Tachycardia (ED) Additional Instructions: Follow up with high school foreign language teacher in the next 1-2 days without fail. I recommend calling the office first thing in the morning to schedule this appointment. Let them know you were seen in the ED twice in the last week for a cardiac arrhythmia and require evaluation by a high school foreign language teacher. Return to the ED for any worsening of condition. Referrals: Sal Morales MD [[facility] [place] Provider] - As per Instructions Bruce Garcia MD [Medical Doctor] - As per Instructions Report Scribed for: Luis Angel Morris Report Scribed by: Jaky Guaman Date of Report: 08/15/17 Time of Report: 21:41 Physician Review and Approval Statement: Portions of this note were transcribed by an ED scribe. I personally performed the history, physical exam, and medical decision making; and confirm the accuracy of the information in the transcribed note.
--- NOTE | 2017-08-15 21:43 | CPEKG ---
Heart Rate: 138 RR Interval: 435 QRSD Interval: 76 QT Interval: 316 QTC Interval: 479 QRS [place]: -73 T Wave [place]: 43 EKG Severity - ABNORMAL ECG - EKG Impression: Ectopic atrial tachycardia EKG Impression: LEFT ANTERIOR FASCICULAR BLOCK EKG Impression: ANTEROLATERAL INFARCT, OLD Electronically Signed By: Joel Bradley 17-Aug-2017 11:11:02
[2017-08-15] MEDS ORDERED: DILTIAZEM 25 MG/5 ML VIAL IVP ONE (21:50)
[2017-08-15 21:59] LABS: PLATELET COUNT 347 10^3/uL (150-400)
--- NOTE | 2017-08-15 22:07 | CPEKG ---
Heart Rate: 86 RR Interval: 698 P-R Interval: 212 QRSD Interval: 80 QT Interval: 388 QTC Interval: 464 P [place]: 48 QRS [place]: -50 T Wave [place]: 18 EKG Severity - ABNORMAL ECG - EKG Impression: SINUS RHYTHM EKG Impression: LEFT ANTERIOR FASCICULAR BLOCK EKG Impression: CONSIDER ANTERIOR INFARCT EKG Impression: BORDERLINE T ABNORMALITIES, ANTERIOR LEADS Electronically Signed By: Joel Bradley 17-Aug-2017 11:09:51
[2017-08-15 23:47] VITALS: BP 126/73
== END 2017-08-15 23:45 | disposition home or self-care (01) ==
DX: I47.1 Supraventricular tachycardia (principal); E86.9 Volume depletion, unspecified; Z79.82 Long term (current) use of aspirin
CPT/HCPCS: 84484-PO; 96374

== ENCOUNTER → 2017-10-14 | Outpatient (CLI) | payer OTHER | LOC: BMCIMAGING 14:10 | PROVIDERS: ATTEND Family Medicine | DX: M17.0 Bilateral primary osteoarthritis of knee (principal); M11.261 Other chondrocalcinosis, right knee; M11.262 Other chondrocalcinosis, left knee; M71.21 Synovial cyst of popliteal space [Baker], right knee ==

== ENCOUNTER 2018-03-14 19:26 | Emergency (ER) | payer OTHER ==
[2018-03-14 19:37] VITALS: BP 159/105
--- NOTE | 2018-03-14 20:07 | EDPHY ---
H & P Stated Complaint: R leg swelling after trauma Time Seen by Provider: 03/14/18 19:50 HPI/ROS: CHIEF COMPLAINT: Leg hematoma HISTORY OF PRESENT ILLNESS: The patient presents to the ED complaining of an increasing painful hematoma to her right lower leg. The patient is anticoagulated with Eliquis for atrial fibrillation. She struck her leg several days ago. The patient has been ambulatory. She denies any additional traumatic injuries. She denies any acute numbness or weakness. She denies excessive pain with plantar flexion or dorsiflexion of the right foot. REVIEW OF SYSTEMS: Constitutional: normal mentation Eyes: No visual changes ENT: no oral trauma Respiratory: no rib pain, no difficulty breathing Cardiac: No chest pain Gastrointestinal: No nausea, no vomiting, no abdominal pain Genitourinary: No hematuria, no dysuria Musculoskeletal: As above Skin: As above Neurological: No headache, no numbness, no weakness Back: No midline pain Source: Patient Exam Limitations: No limitations - Personal History Current Tetanus Diphtheria and Acellular Pertussis (TDAP): Yes - Medical/Surgical History Hx Asthma: No Hx Chronic Respiratory Disease: No Hx Diabetes: No Hx Cardiac Disease: Yes Hx Renal Disease: No Hx Cirrhosis: No Hx Alcoholism: No Hx HIV/AIDS: No Hx Splenectomy or Spleen Trauma: No Other PMH: PMH- VERTIGO, ARTHRITIS, RESTLESS LEG SYNDROME. uterine ca hysterectomy, AFIB ON ELIQUIS - Social History Smoking Status: Former smoker - Physical Exam Exam: General Appearance: Alert, no distress Eyes: Pupils equal and round no pallor or injection ENT, Mouth: Mucous membranes moist Respiratory: There are no retractions, lungs are clear to auscultation Cardiovascular: Regular rate and rhythm Gastrointestinal: Abdomen is soft and nontender, no masses, bowel sounds normal Neurological: Intact motor sensory function noted to the right lower extremity Skin: Ecchymotic changes noted to the right lower extremity Musculoskeletal: Neck is supple nontender Extremities: Large hematoma noted to the right lower extremity, compartment is soft above the hematoma, 2+ dorsalis pedis and posterior tibial pulses noted Psychiatric: Patient is oriented X 3, there is no agitation Constitutional: Initial Vital Signs Temperature (C) 36.6 C 03/14/18 19:34 Heart Rate 68 03/14/18 19:34 Respiratory Rate 18 03/14/18 19:34 Blood Pressure 159/105 H 03/14/18 19:34 O2 Sat (%) 98 03/14/18 19:34 O2 Delivery Mode Room Air Allergies/Adverse Reactions: amoxicillin Allergy (Verified 03/14/18 19:37) promethazine Allergy (Verified 03/14/18 19:37) Sulfa (Sulfonamide Antibiotics) Allergy (Verified 03/14/18 19:37) Home Medications: Medication Instructions Recorded Amitriptyline HCl [Elavil 50 mg 50 mg PO HS 10/29/15 (*)] Calcium Carbonate [Oyster Shell 500 mg PO DAILY 10/29/15 Calcium 500 mg (*)] Ergocalciferol [Vitamin D2 (*)] 50,000 unit PO CASILLAS 10/29/15 Fluticasone Nasal [Flonase Nasal 1 sprays NASAL HS 10/29/15 [place]] Furosemide [Lasix 20 MG (*)] 20 mg PO 10/29/15 Meclizine HCl [Meclizine HCl 12.5 12.5 mg PO BID PRN 10/29/15 mg (*)] Propylene Glycol/Peg 400 [SYSTANE 1 drop EACHEYE HS 10/29/15 0.3-0.4% EYE DROPS] Acetaminophen/Codeine 300/30Mg 1 each PO Q6 PRN #30 tab 12/05/15 [Tylenol #3 (*)] Aspirin EC [Aspirin EC 81 mg (*)] 81 mg PO DAILY #30 tab 12/05/15 Meclizine HCl [Antivert] 25 mg PO Q6-8PRN PRN #10 tablet 05/12/16 Metoprolol Succinate 08/08/17 Eliquis 08/15/17 Medical Decision Making ED Course/Re-evaluation: The patient presents to the ED with a hematoma to the right leg. The patient is neurologically intact. She has no signs of an obvious compartment syndrome at this point time. I have instructed the patient to elevate the extremity and keep it dressed with a mild compression dressing. She should stop taking her Eliquis for the next 3 days. I did consult with Dr. Darshan Quesada who is on-call for Orthopedic surgery evaluated the patient personally in the emergency department. Dr. Quesada will have the patient follow up in his office for recheck. Patient has been discharged home with customary aftercare instructions and return precautions. Differential Diagnosis: Differential diagnosis considered includes compartment syndrome, hematoma, arterial injury Departure - Departure Disposition: Home, Routine, Self-Care Clinical Impression: Hematoma of right lower extremity Condition: Good Instructions: Contusion in Adults (ED) Additional Instructions: 1. Please stop taking your Eliquis for the next 3 days. 2. Return to the ED immediately for increasing pain, numbness, weakness any excessive pain with flexing or extending your foot. 3. Elevate the extremity while sleeping at night. 4. Mild compression with Julius wrap for next week. 5. Please contact Dr. Quesada's office tomorrow to schedule a follow-up visit on . Referrals: Darshan Quesada MD [Medical Doctor] - As per Instructions
== END 2018-03-14 20:25 | disposition home or self-care (01) ==
DX: S80.11XA Contusion of right lower leg, initial encounter (principal); Z79.01 Long term (current) use of anticoagulants; W22.8XXA Striking against or struck by other objects, initial encounter; Y92.9 Unspecified place or not applicable; Y93.9 Activity, unspecified; Y99.9 Unspecified external cause status

== ENCOUNTER → 2018-03-24 | Outpatient (CLI) | payer OTHER | LOC: BMCIMAGING 12:23 | PROVIDERS: ATTEND Internal Medicine | DX: M71.21 Synovial cyst of popliteal space [Baker], right knee (principal); M79.81 Nontraumatic hematoma of soft tissue ==